=== PATIENT | male | born 1960 | race American Indian/Alaskan Native ===

== ENCOUNTER 2019-01-24 10:42 | Day surgery (SDC) | payer OTHER ==
[2019-01-24] MEDS ORDERED: NACL 0.9% 1000 ML 1,000 ML ONE (11:57)
[2019-01-24] MEDS ORDERED: XYLOCAINE MPF 2% ONE (12:00)
[2019-01-24] MEDS ORDERED: DIPRIVAN 10 MG/ML IV ONE ×2 (12:50)
[2019-01-24] MEDS ORDERED: NACL 0.9% 1000 ML 1,000 ML IV SCH (13:00)
--- NOTE | 2019-01-24 13:09 | Anesthesia Day of Surgery ---
Anesthesia Day of Surgery - Day of Surgery Patient Examined: Yes Patient H&P Reviewed: Yes Patient is NPO: Yes Beta Blockers: Yes
--- NOTE | 2019-01-24 13:09 | Anesthesia Consultation ---
Anesthesia Consult and Med Hx Date of service: 01/24/19 - Airway Anesthetic Teeth Evaluation: Poor ROM Head & Neck: Adequate Mental/Hyoid Distance: Adequate Mallampati Class: Class II Intubation Access Assessment: Probably Good - Pulmonary Exam CTA: Yes - Cardiac Exam Cardiac Exam: RRR (bradycardia) - Pre-Operative Health Status ASA Pre-Surgery Classification: ASA2 Proposed Anesthetic Plan: MAC - Pulmonary Hx Smoking: Yes (quit 10yrs ago) Hx Respiratory Symptoms: No - Cardiovascular System Hx Hypertension: Yes (took atenolol and amlodipine today) Hx Heart Attack/AMI: No - Central Nervous System CVA: No - Gastrointestinal Hx Ulcer: Yes (PUD) - Endocrine Hx Renal Disease: No Hx Liver Disease: No Hx Insulin Dependent Diabetes: No Hx Non-Insulin Dependent Diabetes: No Hx Thyroid Disease: No - Other Systems Hx Obesity: No - Additional Comments Anesthesia Medical History Comments: No hx anesthetic complications. Last dose ASA 01/21.
--- NOTE | 2019-01-24 13:21 | Procedure Note ---
Date of procedure: 01/24/19 Pre-op diagnosis: GERD/ Colon Polyp Screening Post-op diagnosis: other (Mild to Moderate Erosive Esophagitis/Gastritis/ No Peptic Ulcer Disease noted/Solitary,small Rectal Polyp (possibly Hyperplastic)/Minor,Left Colon Diverticuli/Mild to Moderate Internal Hemorrhoid) Procedure: EGD with Biopsy and Colonoscopy with Biopsy Anesthesia: JENNIFER Surgeon: GABRIEL PEÑALOZA Estimated blood loss: minimal Pathology: list Specimen disposition: to lab Condition: stable Disposition: same day (Continue treatment with PPI add Baclofen; advice about taking fiber supplements and OTC hemorrhoidal medication. Avoid aspirin and NSAID for 4 dats; otherwise resume home medication and follow up in 1 to 2 weeks ([phone]).)
[2019-01-24 14:09] VITALS: BP 109/60
--- NOTE | 2019-01-24 14:21 | Operative Report ---
INDICATIONS: A 58-year-old -[place] gentleman with a prior history of peptic ulcer disease, who has been having GERD symptoms in spite of treatment with PPI. EGD was done to make sure there was not any recurrence of any disease. DESCRIPTION OF PROCEDURE: The procedure was done after getting informed consent with MAC anesthesia. Instrument was passed through the hypopharynx into the esophagus, which showed mild to moderate distal erosive esophagitis. Photodocumentation and biopsies were obtained. The stomach showed gastritis, but no ulcers were noted in the straight or the retroverted view. The pylorus is patent. The duodenum in the first and second portion appeared normal. There was no evidence of any gastric or duodenal ulcer. There was some antral gastritis noted. Biopsy was done from the gastric antrum, gastric body, and angular incisura to rule out for H. pylori and atrophic gastritis. ASSESSMENT: Gastroesophageal reflux disease symptoms, history of peptic ulcer disease, which appears to have healed, mild to moderate erosive esophagitis, gastritis. PLAN: The plan is to continue treatment with PPI. The patient will also be given baclofen to be taken at bedtime, avoid aspirin and aspirin-related products for the next few days and to do a colonoscopy for further assessment. The procedure was done in the GI lab with assistance of the GI lab team, which included the GI nurse RN, Ana Koenig and with the assistance of anesthesia. JOB# [id number] MILI/SHERRY
--- NOTE | 2019-01-24 14:25 | Operative Report ---
PROCEDURE: Colonoscopy. INDICATIONS: A 58-year-old -[place] gentleman who had a colonoscopy done as part of colon polyp screening. Initial rectal exam was unremarkable. Instrument was passed through the rectum onto the cecum, which was identified with ileocecal valve and the appendiceal orifice. The scope was retroflexed in the cecum. No additional pathology was noted. The scope was then withdrawn to the hepatic flexure, reintroduced to the cecum and no additional pathology was noted. Cecum, ascending colon, transverse colon showed normal mucosa. There were a few minor diverticula noted in the left colon and a small solitary rectal polyp noted about 5-6 mm in diameter, possibly hyperplastic in type that was removed by cold biopsy. There is minimal bleeding associated with the biopsy. No complications associated with the procedure. The rectum also showed mild to moderate internal hemorrhoid on the retroverted view. ASSESSMENT: Colon polyp screening, solitary small rectal polyp removed by cold biopsy, possibly hyperplastic in type. Minor left colon diverticular disease, mild to moderate internal hemorrhoid. The patient will be encouraged to take fiber supplements and [id number] hemorrhoidal medication. Avoid aspirin and aspirin-related products for the next few days. Resume home medications, baclofen will be added to the patient's treatment regimen because of the GERD symptoms and follow up at the office in 1-2 weeks' time. The procedure was done in the GI lab with assistance of the GI lab team, which included Ana Yen and with the assistance of anesthesia. JOB# [id number] MILI/SHERRY
== END 2019-01-24 10:43 | disposition home or self-care (01) ==
LOC: GIO 10:42
DX: Z12.11 Encounter for screening for malignant neoplasm of colon (principal); K29.50 Unspecified chronic gastritis without bleeding; K62.1 Rectal polyp; K27.9 Peptic ulcer, site unspecified, unspecified as acute or chronic, without hemorrhage or perforation; K21.0 Gastro-esophageal reflux disease with esophagitis; K57.30 Diverticulosis of large intestine without perforation or abscess without bleeding; K64.8 Other hemorrhoids; I10 Essential (primary) hypertension; Z79.899 Other long term (current) drug therapy; Z98.890 Other specified postprocedural states
CPT/HCPCS: 43239; 45380; 88305; 88342; J2704; J7030